=== PATIENT | male | born 1970 | race African-American/Black ===

== ENCOUNTER 2017-01-20 06:25 | Emergency (ER) | payer OTHER ==
[~2017-01-20] VITALS: Ht 193 cm; Wt 140.8 kg
[2017-01-20] MEDS ORDERED: PERCOCET 5/31 TABLET PO (06:54)
[2017-01-20] MEDS ORDERED: DEPAKOTE500 MG PO (07:08)
[2017-01-20] MEDS ORDERED: ACETAMINOPHEN-1 EAC1 PO (07:09)
[2017-01-20] MEDS ORDERED: AMOXICILLIN500 MG PO (07:09)
[2017-01-20 07:11] VITALS: BP 158/102
== END 2017-01-20 07:11 | disposition home or self-care (01) ==
LOC: EME 06:25
DX: K08.89 Other specified disorders of teeth and supporting structures (principal); K08.409 Partial loss of teeth, unspecified cause, unspecified class
CPT/HCPCS: 99281; 99283

== ENCOUNTER 2017-01-26 17:41 | Emergency (ER) | payer OTHER ==
[~2017-01-26] VITALS: Ht 193 cm; Wt 141.6 kg
[~2017-01-26 17:41] MED LIST: ACETAMINOPHEN-1 EAC1 PO; AMOXICILLIN500 MG PO; DEPAKOTE500 MG PO; PERCOCET 5/31 TABLET PO
[2017-01-26 17:43] VITALS: BP 155/90
[2017-01-26] MEDS ORDERED: PEN-VEE K,VEET500 MG PO (18:26)
[2017-01-26] MEDS ORDERED: PERCOCET 5/31 TABLET PO (18:26)
== END 2017-01-26 18:35 | disposition home or self-care (01) ==
LOC: EME 17:41
DX: K08.89 Other specified disorders of teeth and supporting structures (principal); K08.409 Partial loss of teeth, unspecified cause, unspecified class
CPT/HCPCS: 99281; 99284

== ENCOUNTER 2017-04-13 10:57 | Emergency (ER) | payer OTHER ==
[~2017-04-13] VITALS: Ht 193 cm; Wt 142.9 kg
[~2017-04-13 10:57] MED LIST changes: +PEN-VEE K,VEET500 MG PO
[2017-04-13] MEDS ORDERED: ULTRAM50 MG PO (13:27)
[2017-04-13 13:46] VITALS: BP 144/79
== END 2017-04-13 13:46 | disposition home or self-care (01) ==
LOC: RME 10:57 → EME 10:57 → RME 13:46
DX: M25.561 Pain in right knee (principal); M25.461 Effusion, right knee; W01.0XXA Fall on same level from slipping, tripping and stumbling without subsequent striking against object, initial encounter
CPT/HCPCS: 73564; 99281; 99282

== ENCOUNTER 2017-08-31 22:37 | Emergency (ER) | payer OTHER ==
[~2017-08-31] VITALS: Ht 193 cm; Wt 136.4 kg
[~2017-08-31 22:37] MED LIST changes: +ULTRAM50 MG PO
[2017-09-01] MEDS ORDERED: LIBRIUM25 MG PO (00:09)
[2017-09-01 02:27] VITALS: BP 141/90
== END 2017-09-01 02:30 ==
LOC: EME 22:37
DX: F10.120 Alcohol abuse with intoxication, uncomplicated (principal); I10 Essential (primary) hypertension
CPT/HCPCS: 99281; 99284

== ENCOUNTER 2018-04-23 13:49 | Inpatient (IN) | payer OTHER ==
[~2018-04-23] VITALS: Ht 193 cm; Wt 140.5 kg
[~2018-04-23 13:49] MED LIST changes: +LIBRIUM25 MG PO
[2018-04-23 14:41] LABS: APPEARANCE CLEAR ((CLEAR)); BILIRUBIN NEGATIVE; BLOOD NEGATIVE; COLOR STRAW ((YELLOW)); GLUCOSE (STRIP) NEGATIVE; KETONES NEGATIVE; LEUKOCYTES NEGATIVE; NITRITE NEGATIVE; PROTEIN (STRIP) NEGATIVE; SPECIFIC GRAVITY 1.003 (1.000-1.030); UCUL ADDED? NO; UROBILINOGEN 0.2 MG/DL (0.2-1.0)
[2018-04-23 14:44] LABS: BASOPHIL (%) 0.5 % (0-1); EOSINOPHIL (%) 6.7 % (0-5); EOSINOPHIL COUNT 0.6 K/uL (0-0.3); HEMATOCRIT 37.7 % (38.0-50.0); HEMOGLOBIN 12.8 G/DL (12.5-16.6); IMMATURE GRANULOCYTE (%) 0.5 % (0.0-0.7); LYMPHOCYTE (%) 24.7 % (15-42); LYMPHOCYTE COUNT 2.2 K/uL (1.0-2.8); MCH 31.8 PG (29.0-34.0); MCV 93.5 FL (86-99); MONOCYTE (%) 8.5 % (3-12); MONOCYTE COUNT 0.8 K/uL (0-0.8); NEUTROPHIL (%) 59.1 % (45-76); NEUTROPHIL COUNT 5.3 K/uL (1.8-6.4); PLATELET COUNT 245 K/uL (156-360); RBC DIS.WIDTH-CV 13.1 % (11.8-14.6); RBC DIS.WIDTH-SD 44.7 % (39-53); RED BLOOD COUNT 4.03 M/uL (4.00-5.50); WHITE BLOOD COUNT 8.9 K/uL (4.1-10.2)
[2018-04-23 14:51] LABS: ALBUMIN 3.6 g/dL (3.2-4.8)
[2018-04-23 14:52] LABS: AMPHETAMINE NEGATIVE (500 ng/mL); COCAINE PRESUMPTIVE POSITIVE (150 ng/mL); METHAMPHETAMINE NEGATIVE (500 ng/mL); OPIATES (MORPHINE) NEGATIVE (100 ng/mL); PHENCYCLIDINE NEGATIVE (25 ng/mL); THC CANNABINOIDS NEGATIVE (50 ng/mL)
[2018-04-23 14:52] LABS: CHLORIDE 104 mEq/L (99-109); SODIUM 139 mEq/L (136-147)
[2018-04-23 14:53] LABS: BARBITURATES NEGATIVE (200 ng/mL); BENZODIAZEPINES NEGATIVE (150 ng/mL); BUPRENORPHINE NEGATIVE (10 ng/mL); METHADONE NEGATIVE (200 ng/mL); OXYCODONE NEGATIVE (100 ng/mL); PROPOXYPHENE NEGATIVE (300 ng/mL); TRICYCLIC ANTIDEPRESSANTS NEGATIVE (300 ng/mL)
[2018-04-23 14:54] LABS: GLUCOSE 95 mg/dL (70-99); TOTAL PROTEIN 7.4 g/dL (6.4-8.3)
[2018-04-23 14:56] LABS: TOTAL BILIRUBIN 0.3 mg/dL (0.0-1.0)
[2018-04-23 14:57] LABS: ALKALINE PHOSPHATASE 89 IU/L (3-129); SERUM ETHYL ALCOHOL 223 mg/dL
[2018-04-23 14:58] LABS: CREATININE 1.1 mg/dL (0.6-1.3); GFR ESTIMATE (CALCULATED) > 59 mL/min/ (58.99-99999)
[2018-04-23 14:59] LABS: AST (GOT) 21 IU/L (2-34); UREA NITROGEN (BUN) 9 mg/dL (9-23)
[2018-04-23 15:01] LABS: ALT (GPT) 24 IU/L (3-49)
[2018-04-23] MEDS ORDERED: DEPAKOTE250 MG PO ×2 (21:30→21:31)
[2018-04-23] MEDS ORDERED: ADDERALL30 MG PO ×2 (21:32)
[2018-04-23] MEDS ORDERED: KLONOPIN2 MG PO (21:33)
[2018-04-23] MEDS ORDERED: FLONASE16 G1 BOTH NARES (21:33)
[2018-04-23] MEDS ORDERED: GLUCOSAMINE &1 EAC1 PO (21:34)
[2018-04-23] MEDS ORDERED: VENTOLIN HFA18 GM IH (21:34)
[2018-04-23] MEDS ORDERED: VALTREX1000 MG PO (21:34)
[2018-04-23] MEDS ORDERED: ONE DAILY1 EAC3 PO (21:34)
[2018-04-23] MEDS ORDERED: ADVIL200 MG PO (21:35)
[2018-04-23 23:59] VITALS: BP 158/95
[2018-04-24 00:04] VITALS: BP 158/95
[2018-04-24 08:01] VITALS: BP 149/96
[2018-04-24 16:15] VITALS: BP 154/89
[2018-04-24 19:42] VITALS: BP 143/85
[2018-04-25 09:06] VITALS: BP 124/74
[2018-04-25 16:47] VITALS: BP 137/80
[2018-04-26 08:18] VITALS: BP 121/67
[2018-04-26 15:37] VITALS: BP 134/67
[2018-04-27 07:57] VITALS: BP 154/78
[2018-04-27 17:10] VITALS: BP 135/75
[2018-04-28 07:38] VITALS: BP 119/69
[2018-04-28 16:47] VITALS: BP 150/79
[2018-04-29 07:48] VITALS: BP 152/88
[2018-04-29] MEDS ORDERED: DIVALPROEX SOD250 MG PO (09:52)
[2018-04-29] MEDS ORDERED: VIVITROL380 MG/3.4 IM (09:52)
== END 2018-04-29 10:24 | disposition other institution (70) | DRG 885 ==
LOC: EME 13:49 → 1WEST 21:09 → EDOF 21:09 → ENRESERV 23:46 → 1WEST 23:47
PROVIDERS: Emergency Medicine
DX: F31.4 Bipolar disorder, current episode depressed, severe, without psychotic features (principal); K92.2 Gastrointestinal hemorrhage, unspecified; R45.851 Suicidal ideations; F11.23 Opioid dependence with withdrawal; I10 Essential (primary) hypertension; E66.9 Obesity, unspecified; Z68.37 Body mass index [BMI] 37.0-37.9, adult; Y90.7 Blood alcohol level of 200-239 mg/100 ml; G25.81 Restless legs syndrome; Z91.5 Personal history of self-harm; F10.20 Alcohol dependence, uncomplicated; F14.90 Cocaine use, unspecified, uncomplicated
CPT/HCPCS: 80053; 81003; 84999; 85025; 90839; 94640; 94799; 97150 GO; 97166 GO; 99281; 99285; G0480